=== PATIENT | male | born 1970 | race Two or more races ===

== ENCOUNTER 2025-10-08 14:59 | Outpatient (AMB) | payer OTHER, SELFPAY ==
[2025-10-08 15:09] VITALS: BP 134/90; PULSE 67; TEMP 36.3; O2SAT 97
--- NOTE | 2025-10-08 15:09 | A.OFFPC_ITS ---
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 Accompanied by: sister Allergies No Known Allergies Allergy (Verified 10/08/25 15:09) Medication List - Last Reconciled 10/08/25 by Dustin Smith MD No Known Home Meds Tobacco use date assessed: 10/08/25 Dental Screening Dental Screen Date: 10/08/25 Did you have a dental visit in the last 12 months?: No Did you have a dental problem in the last 6 months where you did not have access to dental care?: No Was dental information given to patient?: Patient has dentist HPI HPI Comments History of Present Illness Details The patient is a 55-year-old male with PMH of herniated disc, GERD, Insomnia, lung nodule, HLD, MDD, presenting for management of chronic pain, high cholesterol, and to establish primary care. He has a history of three herniated discs, which cause severe spinal cord pain that can lead to falls. The patient reports associated tingling, arm pain, decreased arm strength, and an inability to lift heavy items. Due to the pain, he is unable to work and experiences numbness in his legs with prolonged sitting. Past treatments include a 600 mg Neurontin in [place] that was ineffective, and pain injections that provided relief for 2-3 weeks. He states Tylenol provides no relief. Past medications include ibuprofen 800 mg, gabapentin 800 mg, Pepcid 20 mg, sildenafil 25 mg, and clonazepam 1 mg. He has a history of elevated cholesterol as of March 2021 and takes cholesterol medication. A chest X-ray in January 2024 revealed a 0.5 cm nodule, which was not visualized on a subsequent CT scan in February 2024. An ultrasound in September (year noted as 2023) was normal. He reports having undergone a colonoscopy in December 2019 which showed one sessile polyp. He underwent EGD previously showing lesion in the stomach. [facility] Family History (Updated 10/08/25 @ 15:21 by Kim Summers MA) Father No problems noted. Mother No problems noted. Other High cholesterol Social History Housing: Apartment Patient Tobacco Use Status: Current everyday Tobacco user Tobacco use type: Cigarette Cigarettes Per Day: 10 e-Cigarette/Vaping Use: Never Used service: No Current occupational status: unemployed Cognitive needs: No Hearing needs: No Vision needs: No Questionnaire PHQ-9 Over the last 2 weeks, how often have you been bothered by any of the following problems? 1. Little interest or pleasure in doing things: not at all 2. Feeling down, depressed, or hopeless: more than half the days 3. Trouble falling or staying asleep, or sleeping too much: nearly every day 4. Feeling tired or having little energy: not at all 5. Poor appetite or overeating: not at all 6. Feeling bad about yourself - or that you are a failure or have let yourself or your family down: not at all 7. Trouble concentrating on things, such as reading the newspaper or watching television: not at all 8. Moving or speaking so slowly that other people could have noticed. Or the opposite - being so fidgety or restless that you have been moving around a lot more than usual: not at all 9. Thoughts that you would be better off or of hurting yourself in some way: not at all Total score: 5 Depression Screening Interpretation: Positive (Started Venlafaxine. ) Depression Screening Done: Yes Source: Developed by Drs. Giovanny Kay, Latoya Barnett, Edwin Carmona and colleagues, with an educational tali from [employer]. Thrive Questionnaire Date Thrive assessed: 10/08/25 I am a: Patient What is your living situation today?: I have a steady place to live Within the past 12 months, did the food you bought not last and you didn't have the money to get more?: Never true Within the past 12 months, did you worry whether your food would run out before you got money to buy more?: Never true Do you have trouble paying for medicines?: No Do you have trouble getting transportation to medical appointments?: No Do you have trouble paying your heating and electricity bill?: No Do you have trouble taking care of your child, family member or friend?: No Do you have trouble with day-to-day activities such as bathing, preparing meals, shopping, managing finances, etc.?: No Are you currently unemployed and looking for a job?: Yes Are you interested in more education?: No Please select the resources that you would like help with: None Currently or been in a relationship where the following occur: No concerns reported THRIVE Score: 0 AUDIT C Alcohol Use Questionnaire (AUDIT-C) 1. How often do you have a drink containing alcohol?: Never Total Score: 0 LANDY-7 AMB Questionnaire LANDY-7 Date LANDY - 7 assessed: 10/08/25 Feeling nervous, anxious, or on edge: 0 = Not at all Not being able to stop or control worryin = Not at all Worrying too much about different things: 0 = Not at all Trouble relaxin = Not at all Being so restless that it is hard to sit still: 0 = Not at all Becoming easily annoyed or irritable: 2 = More than half the days Feeling afraid as if something awful might happen: 0 = Not at all Total LANDY-7 score (0-4 normal; 5-9 mild; 10-14 moderate; 15-21 severe): 2 Source: Developed by Drs. Giovanny Kay, Latoya Barnett, Edwin Carmona and colleagues, with an educational tali from [employer]. Review of Systems Const Details: As per HPI. Physical exam (Primary Care) Vital Signs: Last Vital Signs Temp 97.3 F 10/08/25 15:09 Pulse 67 10/08/25 15:09 BP 134/90 H 10/08/25 15:09 Pulse Ox 97 10/08/25 15:09 Oxygen Delivery Method Room Air 10/08/25 15:09 Tobacco/Smoking Status: Tobacco use Status Tobacco use date assessed 10/08/25 10/08/25 15:12 Patient Tobacco Use Status Current everyday Tobacco 10/08/25 15:24 Tobacco use type Cigarette 10/08/25 15:24 e-Cigarette/Vaping Use Never Used 10/08/25 15:24 PHQ-9: PHQ-9 Score PHQ-9: Total score 5 10/08/25 17:33 Depression Screening Interpretation: Positive (Started Venlafaxine. ) Thrive Assessment: Date of Thrive Assessment Date Thrive assessed 10/08/25 10/08/25 15:12 Currently or been in a relationship where the following occur: No concerns reported Const Other: Pertinent findings are in BOLD GENERAL APPEARANCE NAD, activity normal for age, well developed/ well nourished, no cyanosis, pallor, or diaphoresis. EYES lids/conjunctiva normal. EARS/NOSE/THROAT Mucous membranes moist, nares normal, lips/teeth normal uvula midline without oral pharyngeal erythema, exudate or swelling TMs normal bilaterally. No lymphangitis/lymphedema. HEAD/NECK normocephalic atraumatic, no facial trauma, neck is supple. RESPIRATORY respiratory effort normal, speaks in full sentences, no tripod position, no accessory muscle use. Lungs clear to auscultation without rhonchi, wheezes, rales CARDIAC Regular rate and rhythm, no edema. ABDOMINAL Soft, ND/NT. No evidence of fluid wave. No pulsatile masses on exam, rebound tenderness, Presley sign or pain over Mcburney's point. MUSCLES/EXTREMITIES No abnormal range of motion, no swelling. Lumbar spine tenderness. Positive leg raise test bilaterally. SKIN Warm, pink and dry. No rashes, dermatoses, petechiae or lesions. Lump on right shoulder. NEUROLOGICAL Speech is clear and appropriate. Normal level of consciousness. Gait and coordination are normal. 5/5 strength in all extremities. PSYCH Normal mood and affect. Judgement/competence is appropriate Coding Level of Care Code New Pt Level 4 (37360) New Pt Prev Care 40-64y(93510) Diagnoses Healthcare maintenance Z00.00 Hyperlipidemia, unspecified hyperlipidemia type E78.5 Hyperlipidemia type: unspecified Herniated lumbar intervertebral disc M51.26 Tobacco use disorder F17.200 Lung nodule R91.1 Insomnia, unspecified type G47.00 Insomnia type: unspecified Lump of skin of back R22.2 Time Spent (min) 30 Assessment & Plan Assessment & Plan (1) Healthcare maintenance: Code(s): Z00.00 - Encounter for general adult medical examination without abnormal findings Category: Medical Plan: CBC, CMP, Lipid panel, A1C, TSH w T4, vit D. Ordered today. Shingles 2 doses when >50 yo. Next visit. Patient will get his vaccines records during his next visit. COVID: two doses. Patient will get his vaccines records during his next visit. Pneumococcal: >50 yo. 18-49 with CKD, lung disease, weakened immune system, Heart disease, DM, cochlear implant. Next visit.Patient will get his vaccines records during his next visit. Flu vaccine: Patient will get his vaccines records during his next visit. Tdap: every 10 years. Patient will get his vaccines records during his next visit. Colonoscopy: 45-75. Due in 2029. AAA: 65 -75. At 65. CT lun - 80. Pulmonary referrral placed. PSA: 50 -70 every two years. Ordered. HIV: Ordered. HCV: Ordered. (2) HLD (hyperlipidemia): Code(s): E78.5 - Hyperlipidemia, unspecified Category: Medical Qualifiers: Hyperlipidemia type: unspecified Qualified Code(s): E78.5 - Hyperlipidemia, unspecified Plan: - The patient has a history of elevated cholesterol and is currently taking medication for it. - Prescribed atorvastatin 40 mg once daily. - Ordered blood work to monitor lipid levels. (3) Herniated lumbar intervertebral disc: Code(s): M51.26 - Other intervertebral disc displacement, lumbar region Category: Medical Plan: - The patient's chronic pain is attributed to three herniated discs, causing severe symptoms including weakness and tingling, which affects his ability to work. - Ordered CT scans of the cervical, thoracic, lumbar spine to confirm the diagnosis. - Prescribed gabapentin with instructions for a slow upward titration, starting at 100 mg daily and increasing to a target of 300 mg three times daily. 100 mg Daily for three days. 100 mg BID for three days. 200 mg BID for three days. 200 mg TID for seven days. 300 mg TID moving forward. - Prescribed naproxen 375 mg twice daily for pain. - Prescribed venlafaxine 37.5 mg twice daily for neuropathic pain and mood. - Made an urgent referral to Pain Management for injections, which have been effective for the patient in the past. - Referred the patient to Physical Therapy. (4) Tobacco use disorder: Code(s): F17.200 - Nicotine dependence, unspecified, uncomplicated Category: Medical Plan: Pulm referral for CT scan screening. (5) Lung nodule: Comment: 0.5 cm on Xray from 2023. Most recent CT scan was negative. Code(s): R91.1 - Solitary pulmonary nodule Category: Medical Plan: - A 0.5 cm lung nodule was seen on a chest X-ray in January 2024 but not on a subsequent CT scan. - Referred the patient to Pulmonology for continued routine monitoring with CT scans, as was being done previously. (6) Insomnia: Comment: 12/28 pain Code(s): G47.00 - Insomnia, unspecified Category: Medical Qualifiers: Insomnia type: unspecified Qualified Code(s): G47.00 - Insomnia, unspecified Plan: - The patient reports difficulty sleeping due to pain. - Prescribed trazodone 50 mg to be taken at night to aid with sleep. (7) Lump of skin of back: Code(s): R22.2 - Localized swelling, mass and lump, trunk Category: Medical Plan: - The patient reports a lump on his right shoulder which is tender to palpation. - On examination, it appears to be a benign cyst. - Will address this during his next visit. Plan I have detailed the plan to manage the patient's chronic pain with a multimodal approach. This includes starting gabapentin with a gradual dose increase, for which I provided written instructions. We will also add naproxen and venlafaxine. I explained that I am making an urgent referral to pain management for injections, as this treatment has helped him significantly in the past. I ordered CT scans of his neck and lower back for further evaluation. I also started atorvastatin for his hyperlipidemia and trazodone for insomnia. We discussed the flu vaccine; I noted his concerns about side effects and respected his decision to decline it at this time after explaining the typical transient nature of side effects. I informed him about the ordered blood work, referrals to physical therapy and pulmonology, and the plan to obtain an ultrasound of the lump on his shoulder. I will complete the disability paperwork he provided and the office will call him for pickup. We will follow up in one month to assess his response to treatment and consider dose adjustments. Orders: Orders Hemoglobin A1c Today E78.5 - Hyperlipidemia, unspecified, Z00.00 - Encounter for general adult medical examination without abnormal findings Lipid Panel Today E78.5 - Hyperlipidemia, unspecified, Z00.00 - Encounter for general adult medical examination without abnormal findings Vitamin B12 and Folate Today D64.9 - Anemia, unspecified, E78.5 - Hyperlipidemia, unspecified, Z00.00 - Encounter for general adult medical examination without abnormal findings UA and rflx microscopic Today E78.5 - Hyperlipidemia, unspecified, Z00.00 - Encounter for general adult medical examination without abnormal findings TSH reflex Free T4 Today E78.5 - Hyperlipidemia, unspecified, Z00.00 - Encounter for general adult medical examination without abnormal findings Hepatitis C Antibody Reflex Today E78.5 - Hyperlipidemia, unspecified, Z00.00 - Encounter for general adult medical examination without abnormal findings HIV Ab/Ag Today E78.5 - Hyperlipidemia, unspecified, Z00.00 - Encounter for general adult medical examination without abnormal findings Prostate Specific Antigen Today E78.5 - Hyperlipidemia, unspecified, Z00.00 - Encounter for general adult medical examination without abnormal findings CT lumbar spine wo IV con Today M51.26 - Other intervertebral disc displacement, lumbar region CT cervical spine wo IV con Today M51.26 - Other intervertebral disc displacement, lumbar region PT Evaluation and Treatment Today M51.26 - Other intervertebral disc displac ement, lumbar region Complete Blood Count no Diff Today E78.5 - Hyperlipidemia, unspecified, Z00.00 - Encounter for general adult medical examination without abnormal findings Comprehensive Met. Panel Today E78.5 - Hyperlipidemia, unspecified, Z00.00 - Encounter for general adult medical examination without abnormal findings Vitamin D 25-OH Total Today E78.5 - Hyperlipidemia, unspecified, Z00.00 - Encounter for general adult medical examination without abnormal findings CT thoracic spine wo IV con Today M51.26 - Other intervertebral disc displacement, lumbar region Referrals Pain Management Referral M51.26 - Other intervertebral disc displacement, lumbar region Pulmonology Referral F17.200 - Nicotine dependence, unspecified, uncomplicated Medications: New trazodone 50 mg PO BEDTIME PRN 30 tabs 0RF sleep gabapentin 100 mg Daily for three days. 100 mg BID for three days. 200 mg BID for three days. 200 mg TID for seven days. 300 mg TID moving forward. 100 mg PO DAILY 60 caps 2RF atorvastatin (Lipitor) 40 mg PO DAILY 90 tabs 3RF naproxen 375 mg PO BID PRN 60 tabs 3RF pain 30 days venlafaxine 37.5 mg PO BID 60 tabs 0RF omeprazole 40 mg PO DAILY 30 caps 3RF
== END 2025-10-08 16:15 | disposition home or self-care (01) ==
LOC: HO.HMCH 15:00
PROVIDERS: PCP Internal Medicine; Visit Provider Internal Medicine
DX: E78.5 Hyperlipidemia, unspecified (principal); R22.2 Localized swelling, mass and lump, trunk; M51.26 Other intervertebral disc displacement, lumbar region; F17.200 Nicotine dependence, unspecified, uncomplicated; R91.1 Solitary pulmonary nodule; G47.00 Insomnia, unspecified

== ENCOUNTER → 2025-10-08 14:59 | Outpatient (BNVA) | payer OTHER, SELFPAY | PROVIDERS: Visit Provider Internal Medicine | DX: Z00.00 Encounter for general adult medical examination without abnormal findings (principal); E78.5 Hyperlipidemia, unspecified; M51.26 Other intervertebral disc displacement, lumbar region; R91.1 Solitary pulmonary nodule; G47.00 Insomnia, unspecified; R22.2 Localized swelling, mass and lump, trunk | CPT/HCPCS: 99202 ==

== ENCOUNTER 2025-10-12 09:14 | Outpatient (REF) | payer OTHER, SELFPAY ==
[2025-10-12 10:00] LABS: Hematocrit 39.7 % (42.0-52.0); Hemoglobin 13.5 g/dl (14.0-18.0); Mean Corpuscular HGB Conc 34.0 g/dl (31.0-36.0); Mean Corpuscular Hemoglobin 32.8 pg (27.0-33.0); Mean Corpuscular Volume 96.6 fL (80.0-98.0); NRBC Abs Auto 0.000 X10*3/uL (0.0-0.012); NRBC Pct Auto 0.0 /100WBC (0.0-0.2); Platelet Count 151 X10*3/uL (160-400); Red Blood Count 4.11 X10*6/uL (4.60-5.80); White Blood Count 6.8 X10*3/uL (4.8-10.8)
[2025-10-12 10:07] LABS: Appearance Urine Clear; Glucose Urine UA Negative (Negative); PH 7.0 (5.0-9.0); Specific Gravity - Urine 1.015 (1.005-1.025)
[2025-10-12 10:26] LABS: Alanine Aminotransferase 47 U/L (0-40); Albumin Level 4.5 g/dL (3.5-5.0); Alkaline Phosphatase 104 U/L (39-117); Anion Gap 12 (12-20); Aspartate Amino Transferase 36 U/L (5-37); Blood Urea Nitrogen 13 mg/dL (9-16); Calcium 9.5 mg/dL (8.4-10.2); Carbon Dioxide 28 mmol/L (22-29); Chloride 105 mmol/L (96-108); Cholesterol 131 mg/dL (<200); Estimated Glomerular Filt Rate > 60; HDL Cholesterol 48 mg/dL (>40); Potassium 4.2 mmol/L (3.3-5.1); Sodium 141 mmol/L (135-145); Total Protein 7.1 g/dL (6.5-8.0); Triglycerides 142 mg/dL (<150)
[2025-10-12 10:39] LABS: HIV Num 1 0.06 S/CO (0.00-0.99); ~HepC Num1 0.09 S/CO (0.00-0.79); ~Hepatitis C Antibody Nonreactive (Nonreactive)
[2025-10-12 10:50] LABS: Folate 11.3 ng/mL (> or = 4.0); Prostate Specific Antigen 0.30 ng/mL (<0.05-4.0); Vitamin B12 383 pg/mL (200-900)
== END 2025-10-12 09:15 | disposition home or self-care (01) ==
LOC: HO.LAB 09:14
PROVIDERS: PCP Internal Medicine; Visit Provider Internal Medicine
DX: Z00.00 Encounter for general adult medical examination without abnormal findings (principal); Z11.4 Encounter for screening for human immunodeficiency virus [HIV]; Z11.59 Encounter for screening for other viral diseases; E78.5 Hyperlipidemia, unspecified; D64.9 Anemia, unspecified
CPT/HCPCS: 36415; 80053; 80061; 81003; 82306; 82607; 82746; 83036; 84153; 84443; 85027; 86803; 87389

== ENCOUNTER 2025-10-20 11:04 | Outpatient (AMB) | payer OTHER, SELFPAY ==
--- NOTE | 2025-10-20 11:18 | MHC.PC.OV ---
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: No Accompanied by: Self / Same As Patient Allergies No Known Allergies Allergy (Verified 10/20/25 11:18) Medication List - Last Reconciled 10/20/25 by Dustin Smith MD atorvastatin (Lipitor) 40 mg PO DAILY gabapentin 100 mg PO DAILY naproxen 375 mg PO BID PRN 30 days omeprazole 40 mg PO DAILY trazodone 50 mg PO BEDTIME PRN venlafaxine 37.5 mg PO BID Tobacco use date assessed: 10/20/25 Dental Screening Dental Screen Date: 10/20/25 Did you have a dental visit in the last 12 months?: Yes Did you have a dental problem in the last 6 months where you did not have access to dental care?: No HPI HPI Comments History of Present Illness Details The patient is a 55 year old with herniated disc, GERD, Insomnia, lung nodule, HLD, MDD presenting for a follow-up visit two weeks after the last appointment to discuss ongoing back pain. The patient reports increased back pain and it is not completely resolved. The patient also experiences tingling and numbness in the leg, which prompts the patient to sit down. The patient is taking gabapentin 100 mg once in the morning, venlafaxine, and atorvastatin as prescribed. The patient has not yet undergone physical therapy but has an appointment scheduled for October 04. A CT scan for the back has been ordered but requires scheduling. The patient states having had a tetanus shot previously and has a fear of needles. The patient will bring immunization records to the next appointment. [facility] Family History Father No problems noted. Mother No problems noted. Other High cholesterol Social History Housing: Apartment Patient Tobacco Use Status: Current everyday Tobacco user Tobacco use type: Cigarette Cigarettes Per Day: 10 e-Cigarette/Vaping Use: Never Used service: No Current occupational status: unemployed Cognitive needs: No Hearing needs: No Vision needs: No Questionnaire Thrive Questionnaire Date Thrive assessed: 10/20/25 I am a: Patient What is your living situation today?: I have a steady place to live Within the past 12 months, did the food you bought not last and you didn't have the money to get more?: Never true Within the past 12 months, did you worry whether your food would run out before you got money to buy more?: Never true Do you have trouble paying for medicines?: No Do you have trouble getting transportation to medical appointments?: No Do you have trouble paying your heating and electricity bill?: No Do you have trouble taking care of your child, family member or friend?: No Do you have trouble with day-to-day activities such as bathing, preparing meals, shopping, managing finances, etc.?: No Are you currently unemployed and looking for a job?: Yes Are you interested in more education?: No Please select the resources that you would like help with: None Currently or been in a relationship where the following occur: No concerns reported THRIVE Score: 0 AUDIT C Alcohol Use Questionnaire (AUDIT-C) 1. How often do you have a drink containing alcohol?: Never 3. How often do you have six or more drinks on one occasion?: Never Total Score: 0 Review of Systems Const Details: As per HPI. Physical exam (Primary Care) Vital Signs: Last Vital Signs Temp 97.3 F 10/20/25 11:26 Pulse 63 10/20/25 11:26 BP 132/80 10/20/25 11:26 Pulse Ox 96 10/20/25 11:26 Oxygen Delivery Method Room Air 10/20/25 11:26 Tobacco/Smoking Status: Tobacco use Status Tobacco use date assessed 10/20/25 10/20/25 11:19 Patient Tobacco Use Status Current everyday Tobacco 10/20/25 11:19 Tobacco use type Cigarette 10/20/25 11:19 e-Cigarette/Vaping Use Never Used 10/20/25 11:19 PHQ-9: PHQ-9 Score PHQ-9: Total score 0 10/20/25 11:19 Thrive Assessment: Date of Thrive Assessment Date Thrive assessed 10/20/25 10/20/25 11:19 Currently or been in a relationship where the following occur: No concerns reported Const Other: Pertinent findings are in BOLD GENERAL APPEARANCE NAD, activity normal for age, well developed/ well nourished, no cyanosis, pallor, or diaphoresis. EYES lids/conjunctiva normal. EARS/NOSE/THROAT Mucous membranes moist, nares normal, lips/teeth normal uvula midline without oral pharyngeal erythema, exudate or swelling TMs normal bilaterally. No lymphangitis/lymphedema. HEAD/NECK normocephalic atraumatic, no facial trauma, neck is supple. RESPIRATORY respiratory effort normal, speaks in full sentences, no tripod position, no accessory muscle use. Lungs clear to auscultation without rhonchi, wheezes, rales CARDIAC Regular rate and rhythm, no edema. ABDOMINAL Soft, ND/NT. No evidence of fluid wave. No pulsatile masses on exam, rebound tenderness, Presley sign or pain over Mcburney's point. MUSCLES/EXTREMITIES No abnormal range of motion, no swelling. SKIN Warm, pink and dry. No rashes, dermatoses, petechiae or lesions. NEUROLOGICAL Speech is clear and appropriate. Normal level of consciousness. Gait and coordination are normal. 5/5 strength in all extremities. PSYCH Normal mood and affect. Judgement/competence is appropriate Office Procedures Flu Questionnaire Does the patient have a severe egg allergy?: No Does the patient have severe life threatening allergies?: No Does the patient have a fever or illness today?: No Has the patient ever had Guillain-Butler Syndrome?: No Has the patient ever had any past reaction to a flu shot?: No Immunizations Fluarix [id number] (PF) 45 mcg (15 mcg x 3)/0.5 mL IM syringe Performing Provider: Dustin Smith MD Per[facility] [place] [facility] Administered by: Latrice Jacobs CMA on 10/20/25 12:13 Dose Route Admin Location Dispensed Lot Number Expiration Date [facility] [employer] Person 0.5 mL IM Left Deltoid 0.5 mL [id number] 05/25/26 [id number] [employer] Pupp[employer] VIS Given Date VIS Provided VIS Publication Date 10/20/25 Single Vaccine 24 Eligibility Eligibility Date Funding Source Not [facility] Eligible 10/20/25 Private Coding Level of Care Code Est Pt Level 3 (98971) Diagnoses Chronic midline low back pain with bilateral sciatica M54.41; M54.42; G89.29 Chronicity: chronic Back pain laterality: midline Sciatica presence: with sciatica Sciatica laterality: bilateral sciatica Time Spent (min) 20 Assessment & Plan Assessment & Plan (1) Low back pain: Code(s): M54.50 - Low back pain, unspecified Category: Medical Qualifiers: Chronicity: chronic Back pain laterality: midline Sciatica presence: with sciatica Sciatica laterality: bilateral sciatica Qualified Code(s): M54.41 - Lumbago with sciatica, right side; M54.42 - Lumbago with sciatica, left side; G89.29 - Other chronic pain Plan: - A CT scan of the back is needed and must be scheduled. - The patient has a physical therapy appointment scheduled for October 04. - Disability paperwork will be completed after the CT scan is done and physical therapy has begun. - The patient will continue taking prescribed medications, including gabapentin. - A follow-up appointment is scheduled for November 08 to re-evaluate the pain. Plan I discussed the plan for managing the patient's ongoing back pain. I advised the patient to call and schedule the pending CT scan of the back, as we need this diagnostic information for further assessment. I explained that disability paperwork cannot be completed until after the CT scan is performed and physical therapy has been initiated. I informed the patient that the recent lab results were good. We discussed immunizations; I offered the flu shot, which the patient declined. I instructed the patient to bring all immunization records to the next visit on November 08 so we can review the status of the tetanus shot. The plan is for the patient to complete the CT scan, start physical therapy, and then return for a follow-up visit on November 08 to re-evaluate the pain. Orders: Orders Influenza [id number] Immunization Today Z23 - Encounter for immunization Medications: Changed From gabapentin 100 mg Daily for three days. 100 mg BID for three days. 200 mg BID for three days. 200 mg TID for seven days. 300 mg TID moving forward. 100 mg PO DAILY 60 caps 2RF To gabapentin 100 mg PO DAILY 60 caps 2RF
[2025-10-20 11:26] VITALS: BP 132/80; PULSE 63; TEMP 36.3; O2SAT 96
--- OUTSIDE RECORDS SUMMARY | 2025-10-20 14:41 | XMS_ITS | Clinical Summary ---
Author Organization [facility] Address [address] [address] Phone Care Team Providers Care Station [facility] Name Role Phone Pcp, Unknown Primary Care Provider Unavailabl e Allergies No known active allergies Medications atorvastatin (LIPITOR) 20 MG tablet Take 1 tablet (20 mg total) by mouth daily. 30 tablet Active methylPREDNISol one (MEDROL DOSEPACK) 4 mg tablet follow package directions 21 tablet Active gabapentin (NEURONTIN) 100 MG capsule Take 1 capsule (100 mg total) by mouth 3 (three) times a day. 90 capsule Active Encounters Date Type Department Care Team Description 08/26/2025 9:23 AM EDT - 08/26/2025 11:52 AM EDT Emergency [facility] [address] [place] [address] Jayesh Escalera MD Discharge Disposition: Home or Self Care from Last 3 Months Social History Tobacco Use Types Packs/Day Years Used Date Smoking Tobacco: Never Assessed Education Answer Date Recorded Are you interested in more education? Not on william e 08/26/2025 Are you concerned about learning? Not on file 08/26/2025 No 08/26/2025 No 08/26/2025 Food Answer Date Recorded Within the past 6 months we worried whether our food would run out before we got money to buy more. Never True 08/26/2025 Within the past 6 months the food we bought just didn't last and we didn't have enough money to get more. Never True Residential Stability Answer Date Recor ded What is your housing situation today? I have terrence sun 08/26/2025 How many times have you move d in the past 12 months? Zero (I did not move) 08/26/2025 Paying for Meds Answer Date Recorded Do you have trouble paying for medicines? No 08/26/2025 Paying Utility Bills Answer Date Record ed Do you have trouble paying your heating or elect ricity bill? No 08/26/2025 Transportation Answer Date Recorded Has the lack of transportati on kept you from medical appointments or from getting medications? No 08/26/2025 Digital Access Answer Date Recorded No 08/26/2025 Yes 08/26/2025 Do you have reliable internet access at home? Ye s 08/26/2025 Do you have a device (e.g., phone, tablet, computer) with a working camera? Yes 08/26/2025 Intimate Partner Violence Answer Date R ecorded Are you denied basic needs s uch as food, clothing, or medical care? No 08/26/2025 In the past 12 months have y ou been in a relationship with a person who hurts, threatens, or tries to control you? No 08/26/2025 Are you denied basic needs s uch as food, clothing, or medical care? No 08/26/2025 In the past 12 months have y ou been in a relationship with a person who hurts, threatens, or tries to control you? No 08/26/2025 Sex and Gender Information Value Date Recorded Sex Assigned at Male 08/26/2025 10:51 AM EDT Legal Sex Male 8:37 AM EDT Gender Identity Male 08/26/2025 10:51 AM EDT Sexual Orientation Don't know 08/26/2025 10 :51 AM EDT Last Filed Vital Signs Vital Sign Reading Time Taken Comments Blood Pressure 135/83 08/26/2025 11:50 AM EDT Pulse 85 08/26/2025 11:50 AM EDT Temperature 36.2 C (97.2 F) 08/26/2025 11:50 AM EDT Respiratory Rate 18 08/26/2025 11:50 AM EDT Oxygen Saturation 98% 08/26/2025 11:50 AM EDT Inhaled Oxygen Concentration - - Weight 71.2 kg (157 lb) 08/26/2025 8:44 AM EDT Height 157.5 cm (5' 2 ) 08/26/2025 8:44 AM EDT Body Mass Index 28.72 08/26/2025 8:44 AM EDT Plan of Treatment Health Maintenance Due Date Last Done Comments Adult Td,Tdap Booster 1968 LIPID PANEL 1968 DEPRESSION SCREENING 1980 SMOKING Hx and SMOKELESS TOB ACCO SCREENING 1981 HEPATITIS C SCREENING 1986 HIV ONE-TIME SCREENING (18-6 5 YEARS) 1986 SCREENING FOR DIABETES 2003 COLOGUARD 2013 COLONOSCOPY 2013 COLORECTAL CANCER SCREENING 2013 FIT TEST 2013 FOBT 2013 SIGMOIDOSCOPY 2013 VIRTUAL COLONOSCOPY 2013 PNEUMOCOCCAL VACCINES (50+ y ears) (1 of 1 - PCV) 2018 ZOSTER VACCINES (1 of 2) 2018 INFLUENZA VACCINE (#1) 2025 COVID-19 VACCINE (1 - 2024-2 6 season) 2025 RSV VACCINE (1 - 1-dose 75+ series) 2043 HEPATITIS A VACCINES Aged Out No long er eligible based on patient's age to complete this topic HIB VACCINES Aged Out No longer eligi ble based on patient's age to complete this topic MENINGOCOCCAL VACCINES (ACWY) Aged Out No longer eligible based on patient's age to complete this topic MENINGOCOCCAL VACCINES (B) Aged Out N o longer eligible based on patient's age to complete this topic Medical Devices Not on file [place] [employer] [place] [facility] [place] Care Teams Station [facility] Relationship Specialty Start Date End Date Pcp, Unknown PCP - General 08/26/25 Additional Source Comments The information contained in this document represents components of the legal health record. It is not the complete legal health record.[facility]
== END 2025-10-20 12:23 | disposition home or self-care (01) ==
LOC: HO.HMCH 11:05
PROVIDERS: PCP Internal Medicine; Visit Provider Internal Medicine
DX: M54.41 Lumbago with sciatica, right side (principal); M54.42 Lumbago with sciatica, left side; G89.29 Other chronic pain; Z23 Encounter for immunization

== ENCOUNTER → 2025-10-20 11:04 | Outpatient (BNVA) | payer OTHER, SELFPAY | PROVIDERS: Visit Provider Internal Medicine | DX: M54.41 Lumbago with sciatica, right side (principal); M54.42 Lumbago with sciatica, left side; G89.29 Other chronic pain; Z23 Encounter for immunization | CPT/HCPCS: 90471; 90656; 99212 ==